=== PATIENT | male | born 1960 | race Caucasian/White ===

== ENCOUNTER 2021-07-05 02:03 | Emergency (ER) | payer OTHER ==
[~2021-07-05] VITALS: Ht 182.9 cm; Wt 95.3 kg
[2021-07-05 02:08] VITALS: BP 107/60
--- NOTE | 2021-07-05 02:19 | NUR ---
patient to bed 1 wheelchair assisted
--- NOTE | 2021-07-05 02:19 | NUR ---
Marky cardozo in [facility] - 07/05/21 at 0219 by JOANIE patient to bed 4 wheelchair assisted
[2021-07-05] MEDS ORDERED: IPRATROPIUM 0.02% 0.5 MG/2.5 ML NEBU INH ONE (02:35)
[2021-07-05] MEDS ORDERED: MAG SULF 2000 MG/WATER PREMIX 50 ML IV ONE (02:35)
[2021-07-05] MEDS ORDERED: ALBUTEROL 0.083% 2.5 MG/3 ML NEBU INH ONE (02:35)
[2021-07-05] MEDS ORDERED: methylPREDNISolone SS 125 MG in WATER STERILE 2 ML IV ONE ×4 (02:35)
[2021-07-05 02:58] LABS: HEMOGLOBIN 12.6 g/dL (12.0-18.0)
[2021-07-05 03:05] LABS: BASOPHILS % (AUTO) 0.3 % (0.0-2.0); EOSINOPHILS % (AUTO) 0.1 % (0.0-4.0); HEMATOCRIT 38.2 % (36-52); LYMPHOCYTES # (AUTO) 1.7 K/uL (2.0-11.5); LYMPHOCYTES % (AUTO) 16.4 % (20.5-51.1); MEAN CORPUSCULAR HEMOGLOBIN 30 pg (27-31); MEAN CORPUSCULAR HGB CONC 33 g/dL (33-37); MEAN CORPUSCULAR VOLUME 89.2 fL (80-94); MONOCYTES # (AUTO) 0.6 K/uL (0.8-1.0); MONOCYTES % (AUTO) 5.8 % (1.7-9.3); NEUTROPHILS # (AUTO) 8.1 K/uL (1.8-7.7); NEUTROPHILS % (AUTO) 77.4 % (42.2-75.2); PLATELET COUNT (AUTO) 261 K/uL (140-450); RED BLOOD CELL COUNT(AUTO) 4.29 MIL/uL (4.20-6.10); RED CELL DISTRIBUTION WIDTH 16.4 % (11.6-13.7); WHITE BLOOD COUNT (AUTO) 10.4 K/uL (4.8-10.8)
[2021-07-05 03:14] LABS: ALBUMIN 3.2 g/dL (3.4-5.0); ANION GAP 15.9 (8-16); CARBON DIOXIDE 29.5 mmol/L (21-32); CREATININE 3.4 mg/dL (0.6-1.3); POTASSIUM 5.4 mmol/L (3.5-5.1); TOTAL BILIRUBIN 2.2 mg/dL (0.0-1.0)
--- NOTE | 2021-07-05 03:48 | NUR ---
ASSISTED PT TO RESTROOM
[2021-07-05] MEDS ORDERED: methylPREDNISolone SS 125 MG/2 ML VIAL ONE (04:03)
--- NOTE | 2021-07-05 04:15 | NUR ---
ADMINISTERED SCHEDULED MEDS, MAGNESIUM RUNNING AT 25 ML/HR RIGHT FOREARM 22 GAUGE IV SITE . PATIENT IN NO APPARENT ACUTE DISTRESS. WILL CONTINUE TO MONITOR.
[2021-07-05 05:28] VITALS: BP 122/80
--- NOTE | 2021-07-05 05:37 | NUR ---
The patient's care was reviewed and supervised by PATRICIO CRUZ RN.
--- NOTE | 2021-07-05 05:37 | NUR ---
The patient's care was reviewed and supervised by Paula Patiño RN.
--- NOTE | 2021-07-05 05:37 | NUR ---
Patient discharged with v/s stable. Written and verbal after care instructions given and explained. Patient verbalized understanding. Ambulatory with steady gait. All questions addressed prior to discharge. Advised to follow up with PMD.
--- NOTE | 2021-07-08 14:33 | NUR ---
LATE ENTRY- MAGNESIUM SUFLATE IVPB DISCONTINUED AT 0537.
== END 2021-07-05 05:37 | disposition home or self-care (01) ==
LOC: MED 02:03
DX: J44.1 Chronic obstructive pulmonary disease with (acute) exacerbation (principal); N18.9 Chronic kidney disease, unspecified; F17.210 Nicotine dependence, cigarettes, uncomplicated
CPT/HCPCS: 36415; 71045; 80053; 85025; 94640; 96365; 96375; 99285; J2930; J3475; J7613; J7644; Q0092; 96366

== ENCOUNTER 2021-07-06 22:29 | Emergency (ER) | payer OTHER ==
[~2021-07-06] VITALS: Ht 185.4 cm; Wt 84.4 kg
[2021-07-06 22:47] VITALS: BP 121/65
[2021-07-06 23:22] LABS: BASOPHILS # (AUTO) 0.1 K/uL (0.00-0.22); BASOPHILS % (AUTO) 0.7 % (0.0-2.0); HEMATOCRIT 38.1 % (36-52); HEMOGLOBIN 12.5 g/dL (12.0-18.0); LYMPHOCYTES # (AUTO) 1.1 K/uL (2.0-11.5); LYMPHOCYTES % (AUTO) 8.2 % (20.5-51.1); MEAN CORPUSCULAR HEMOGLOBIN 29 pg (27-31); MEAN CORPUSCULAR HGB CONC 33 g/dL (33-37); MONOCYTES # (AUTO) 0.6 K/uL (0.8-1.0); MONOCYTES % (AUTO) 4.5 % (1.7-9.3); NEUTROPHILS # (AUTO) 11.3 K/uL (1.8-7.7); NEUTROPHILS % (AUTO) 86.6 % (42.2-75.2); PLATELET COUNT (AUTO) 244 K/uL (140-450); RED BLOOD CELL COUNT(AUTO) 4.28 MIL/uL (4.20-6.10); RED CELL DISTRIBUTION WIDTH 16.3 % (11.6-13.7); WHITE BLOOD COUNT (AUTO) 13.1 K/uL (4.8-10.8)
[2021-07-06 23:37] LABS: ALBUMIN 3.6 g/dL (3.4-5.0); ANION GAP 15.6 (8-16); CARBON DIOXIDE 28.7 mmol/L (21-32); CREATININE 3.4 mg/dL (0.6-1.3); POTASSIUM 5.3 mmol/L (3.5-5.1); TOTAL BILIRUBIN 1.4 mg/dL (0.0-1.0)
[2021-07-07] MEDS ORDERED: ASPIRIN 325 MG TAB PO ONE (01:00)
[2021-07-07] MEDS ORDERED: LANS15EC28 PO (01:19)
[2021-07-07] MEDS ORDERED: ATEN25TA7 PO (01:19)
[2021-07-07] MEDS ORDERED: POTA10TA70 PO (01:19)
[2021-07-07] MEDS ORDERED: APIX5TAB PO (01:19)
[2021-07-07] MEDS ORDERED: BUME1TAB92 PO (01:19)
[2021-07-07] MEDS ORDERED: METO50TE2 PO (01:19)
[2021-07-07] MEDS ORDERED: METO-485 PO (01:19)
[2021-07-07] MEDS ORDERED: LORazepam 1 MG TAB PO ONE (02:30)
[2021-07-07 03:29] VITALS: BP 101/67
[2021-07-07] MEDS ORDERED: OLANZapine 5 MG TAB PO SCH (06:15)
[2021-07-07] MEDS ORDERED: ALBUTEROL 0.083% 2.5 MG/3 ML NEBU INH PRN (06:30)
[2021-07-07] MEDS ORDERED: SODIUM PHOSPHATE 118 ML ENEM RC PRN (06:30)
[2021-07-07] MEDS ORDERED: guaiFENesin DM 200/20 MG-10 ML 10 ML UDC PO PRN (06:30)
[2021-07-07] MEDS ORDERED: KCL 20 MEQ/WATER INJ PREMIX 200 ML IV PRN (06:30)
[2021-07-07] MEDS ORDERED: ZOLPIDEM 5 MG TAB PO PRN ×2 (06:30)
[2021-07-07] MEDS ORDERED: MAG SULF 2000 MG/WATER PREMIX 50 ML IV PRN ×2 (06:30)
[2021-07-07] MEDS ORDERED: CLONIDINE HYDROCHLORIDE 0.1 MG TAB PO PRN (06:30)
[2021-07-07] MEDS ORDERED: MAGNESIUM OXIDE 400 MG TAB PO PRN ×2 (06:30)
[2021-07-07] MEDS ORDERED: ACETAMINOPHEN 650 MG SUPP RC PRN (06:30)
[2021-07-07] MEDS ORDERED: POTASSIUM CHLORIDE 10 MEQ TABER PO PRN ×2 (06:30)
[2021-07-07] MEDS ORDERED: LORazepam 2 MG/ML VIAL IVP PRN (06:30)
[2021-07-07] MEDS ORDERED: ONDANSETRON 4 MG/2 ML VIAL IVP PRN ×2 (06:30)
[2021-07-07] MEDS ORDERED: LORazepam 1 MG TAB PO PRN (06:30)
[2021-07-07] MEDS ORDERED: HYDROcodone/APAP 5/325 MG 1 TAB TAB PO PRN ×3 (06:30)
[2021-07-07] MEDS ORDERED: diphenhydrAMINE 50 MG/ML VIAL IVP PRN (06:30)
[2021-07-07] MEDS ORDERED: BUMETANIDE 1 MG/4 ML VIAL IV SCH (06:30)
[2021-07-07] MEDS ORDERED: DOCUSATE SODIUM 250 MG GELCAP PO PRN (06:30)
[2021-07-07] MEDS ORDERED: ACETAMINOPHEN 325 MG TAB PO PRN ×2 (06:30)
[2021-07-07] MEDS ORDERED: ALUMINUM HYD/MAG/SIMETHICONE 30 ML UDC PO PRN (06:30)
[2021-07-07] MEDS ORDERED: IPRATROPIUM 0.02% 0.5 MG/2.5 ML NEBU INH PRN (06:30)
[2021-07-07] MEDS ORDERED: bisacodyL 10 MG SUPP RC PRN (06:30)
[2021-07-07] MEDS ORDERED: LANSOPRAZOLE 30 MG CAPDR PO SCH (08:00)
[2021-07-07] MEDS ORDERED: ATORVASTATIN 20 MG TAB PO SCH (09:00)
[2021-07-07] MEDS ORDERED: POTASSIUM CHLORIDE 10 MEQ TABER PO SCH (09:00)
[2021-07-07] MEDS ORDERED: APIXABAN 2.5 MG TAB PO SCH (09:00)
[2021-07-07] MEDS ORDERED: atenoloL 25 MG TAB PO SCH (09:00)
[2021-07-07] MEDS ORDERED: NON-FORMULARY ITEM (Lansoprazole* (Prevacid 24Hr*) 30 MG) PO SCH (09:00)
[2021-07-07] MEDS ORDERED: DOCUSATE SODIUM 100 MG GELCAP PO SCH (09:00)
[2021-07-07] MEDS ORDERED: METOPROLOL SUCCINATE 50 MG TABER PO SCH (21:00)
[2021-07-08] MEDS ORDERED: LANSOPRAZOLE 30 MG CAPDR PO SCH (06:30)
== END 2021-07-07 02:35 | disposition admitted as inpatient to this hospital (09) ==
LOC: MED 22:29 → UNDOADMIN 07-07 02:35 → MED 07-07 02:35 → MMU 07-07 02:35 → UNDODISIN 07-07 06:20
DX: I21.4 Non-ST elevation (NSTEMI) myocardial infarction (principal); R06.02 Shortness of breath; Z20.822 Contact with and (suspected) exposure to COVID-19; I50.9 Heart failure, unspecified; J44.9 Chronic obstructive pulmonary disease, unspecified; F17.210 Nicotine dependence, cigarettes, uncomplicated; Z87.448 Personal history of other diseases of urinary system
CPT/HCPCS: 36415; 71045; 80053; 83880; 84484; 85025; 93005; 99291